=== PATIENT | female | born 1940 | race Caucasian/White ===

== ENCOUNTER → 2016-04-20 | Outpatient (CLI) | payer MEDICARE, BC ==
[2016-04-20 11:57] LABS: Basophils % (A) 0 %; CH 27.9; CHCM 30.7; Eosinophils # (A) 0.1 k/uL (0-0.7); Eosinophils % (A) 2 %; HDW 2.48; Hypochromasia Moderate; Luc # (Auto) 0.11; Luc % (Auto) 1; Lymphocytes # (A) 2.6 k/uL (1.0-4.8); Lymphocytes % (A) 27 %; MCH 28.4 pg (25.0-35.0); MCV 91.6 fL (80.0-100.0); Mean Platelet Volume 8.8; Monocytes # (A) 0.3 k/uL (0-1.0); Monocytes % (A) 3 %; Neutrophils # (A) 6.7 k/uL (1.3-7.7); Neutrophils % (A) 68 %; RBC 4.91 m/uL (3.80-5.40); RDW 12.9 % (11.5-15.5); WBC 9.9 k/uL (3.8-10.6); WBC (Perox) 10.43
[2016-04-20 12:12] LABS: ALT 30 U/L (9-52); AST 19 U/L (14-36); Alkaline Phosphatase 78 U/L (38-126); Anion Gap 11 mmol/L; Blood Urea Nitrogen 14 mg/dL (7-17); Calcium 9.3 mg/dL (8.4-10.2); Carbon Dioxide 26 mmol/L (22-30); Chloride 111 mmol/L (98-107); Glucose 125 mg/dL (74-99); Non-African American GFR(MDRD) >60 (>60 ml/min/1.73 sqM); Potassium 5.2 mmol/L (3.5-5.1); Sodium 148 mmol/L (137-145); Total Bilirubin 0.6 mg/dL (0.2-1.3); Total Protein 6.8 g/dL (6.3-8.2)
[2016-04-20 13:54] LABS: Appearance,Urine Clear (Clear); Bilirubin,Urine Negative (Negative); Glucose,Urine (UA) Negative (Negative); Ketones,Urine Negative (Negative); Leukocyte Esterase,Urine Moderate (Negative); Nitrite,Urine Negative (Negative); Particle Count 1329; Protein,Urine Negative (Negative); RBC,Urine 1 /hpf (0-5); Squamous Epithelial Cell,Urine <1 /hpf (0-4); UA Billing (MACRO vs. MICRO) MICRO; Urobilinogen,Urine <2.0 mg/dL (<2.0); WBC,Urine 9 /hpf (0-5)
== END | disposition home or self-care (01) ==
LOC: LABPAT 11:11
PROVIDERS: ATTEND Orthopaedic Surgery
DX: Z01.810 Encounter for preprocedural cardiovascular examination (principal); Z01.812 Encounter for preprocedural laboratory examination
CPT/HCPCS: 80053; 81001; 85025; 85610; 85730; 86850; 86900; 86901; 87070

== ENCOUNTER 2016-04-26 09:51 | Inpatient (IN) | payer MEDICARE, BC ==
[2016-04-13 17:37] VITALS: BMI 28.1
[~2016-04-26 09:51] MED LIST: ACETAMINOPHEN TAB 500 MG TAB PO ONE; DEXAMETHASONE SOD PHOSPHATE 10 MG/ML 1 ML VIAL IV ONE; HYDROmorphone 1 MG/ML 1 ML SYRINGE IVP PRN; LACTATED RINGERS 1,000 ML IV SCH; MELOXICAM 7.5 MG TAB PO ONE; ONDANSETRON 4 MG/2 ML VIAL IVP ONE; TRANEXAMIC ACID 1,000 MG in SODIUM CHLORIDE 0.9% 100 ML IVPB ONE
[2016-04-26] MEDS ORDERED: LIDOCAINE 1% 20 ML VIAL (10MG/ML) FOR IV START INTRADERMA ONE (11:06)
[2016-04-26] MEDS ORDERED: PROPOFOL 10 MG/ML 20 ML VIAL IV ONE (12:20)
[2016-04-26] MEDS ORDERED: HEPARIN SODIUM,PORCINE 10,000 UNIT/ML 1 ML VIAL ONE (12:20)
[2016-04-26] MEDS ORDERED: SODIUM CHLORIDE 0.9% IRRIG 1,000 ML BTL IRRIGATION ONE (12:20)
[2016-04-26] MEDS ORDERED: MIDAZOLAM 2 MG/2 ML VIAL ONE (12:20)
[2016-04-26] MEDS: ceFAZolin 2 GM in SODIUM CHLORIDE 0.9% 100 ML IVPB ONE ×2 (12:20→16:53)
[2016-04-26] MEDS ORDERED: SODIUM CHLORIDE 0.9% 100 ML BAG ONE ×2 (12:20)
[2016-04-26] MEDS ORDERED: fentaNYL (PF) 50 MCG/ML 2 ML AMP ONE (12:20)
[2016-04-26] MEDS ORDERED: TRANEXAMIC ACID 1,000 MG/10 ML VIAL ONE (12:20)
[2016-04-26] MEDS ORDERED: SODIUM CHLORIDE 0.9% IRRIG 3,000 ML BAG IRRIGATION ONE (12:20)
[2016-04-26] MEDS ORDERED: ceFAZolin 1,000 MG VIAL ONE ×2 (12:20)
[2016-04-26] MEDS ORDERED: ceFAZolin 3,000 MG in SODIUM CHLORIDE 0.9% IRRIGATIO 3,000 ML IRRIGATION ONE (12:58)
[2016-04-26] MEDS: ROPIVACAINE 246.25 MG, EPINEPHrine 0.5 MG, KETOROLAC 30 MG, cloNIDine HCL/PF 80 MCG, WA... MISCELLANE ONE ×10 (12:58→13:41)
--- NOTE | 2016-04-26 13:50 | P.OP ---
Date of Procedure: 04/26/16 Preoperative Diagnosis: Severe osteoarthritis of the right hip Postoperative Diagnosis: Severe osteoarthritis of the right hip Procedure(s) Performed: Right total hip arthroplasty with a direct anterior approach Implants: Johnson and nephew Polarstem size 5 standard with a collar Johnson & Nephew R3, 3 hole acetabular shell, 52 mm Johnson & Nephew reflection 6.5 mm cancellus screw, 20 mm 2 Johnson & Nephew R3, XLPE 20 acetabular liner Johnson & Nephew Oxinium femoral head 36 m, +0 All components were press-fit. The articulation is ceramic on polyethylene. Anesthesia: spinal Surgeon: Mark Haddad Arabic Translator #1: Xiomara Bartlett Estimated Blood Loss (ml): 150 (61 cc returned with cell saver) Pathology: other (Femoral head) Condition: stable Disposition: PACU Indications for Procedure: After failure of conservative treatment we discussed the surgical and nonsurgical treatment options at length. Patient wishes to proceed with a total hip arthroplasty with a direct anterior approach. Complications specific to this procedure were discussed at length, including but not limited to infection, leg length discrepancy, dislocation, and nerve injury. Patient is aware of all these complications and informed consent was obtained Operative Findings: The findings are consistent with severe osteoarthritis of the right hip Description of Procedure: Patient was seen and evaluated in the preoperative area, consent was reviewed, and the surgical site was marked with a skin marker. Patient was then brought to the operating room and given prophylactic antibiotics intravenously. 1 g of Tranexamic acid was also given. A spinal anesthetic was administered by the anesthesia department. The patient was then placed on the hand table with the bony prominences well-padded. The hip area was then prepped and draped in usual sterile fashion. A universal timeout was then performed, which confirmed the patient's name, surgical site, ALLERGIES, and procedure being performed. Next the incision site was located at 1 cm distal and 1 cm lateral to the anterior superior iliac spine. The skin and subcutaneous tissues were sharply incised. Incision was carefully dissected down to the fascia overlying the tensor fascia onur muscle. This fascia was then incised in line with the incision. Next, using blunt finger dissection, the tensor fascia onur muscle was dissected off its investing fascia. The muscle was then carefully retracted laterally with a cobra retractor over the lateral neck of the femur. Next, the circumflex vessels were identified and cauterized using the AquaMantis device. The anterior hip capsule was then exposed. The capsule was then opened and an inverted T fashion. Retention sutures were placed in the inferior arms of the capsule. Cobra retractors were then placed intracapsularly. The proximal femur was then visualized. The femoral neck was then osteotomized appropriate level above the lesser trochanter. Small amount of traction was placed with the hand table. A small wedge of bone was then removed from the remaining femoral head. Next, using a corkscrew femoral head was easily removed from the acetabulum. On gross visual inspection, the femoral head had complete loss of articular cartilage in multiple periarticular osteophytes. Attention was then turned to the acetabulum. the acetabulum was exposed and any remaining labrum was excised. Sequential reaming of the acetabulum was performed using fluoroscopic guidance. When the appropriate size was reached, a trial was then placed. The position and fit of the trial was checked with fluoroscopy. The trial was then removed. Then, using fluoroscopic guidance, the final implant was impacted at 20 of anteversion and 40 of abduction, and fully seated in the acetabulum. 2 screws were then placed in the acetabulum. Again fluoroscopy was used to check position of the screws. Next, the liner was then impacted, with a 20 elevated liner located in the anterior superior quadrant. Component locking was confirmed. Attention was then directed to the femur. With the aid of the Jessica table, the femur was externally rotated to approximately 130, extended, and abducted under the opposite leg. A side hook was then placed under the proximal femur, and the side hook elevator was used to elevate the proximal femur. Retractors were then placed. A capsular release was performed, as well as a release of the conjoined tendon, which afforded excellent visualization of the proximal femur. Next, a box osteotome was used to lateralize the proximal femur. A drill hand was then used to locate the femoral canal. Sequential broaching was then performed with appropriate size which afforded excellent fixation in the proximal femur. The calcar was then planed. A trial was then placed with appropriate head and neck, and the hip was gently reduced with the aid of the Jessica table. Fluoroscopy was then used to check position of the components, as well as to ensure equal leg lengths. The hip was then gently dislocated and the trials were then removed. Final implants were then impacted and the hip was again reduced. Final fluoroscopic x-rays confirmed that the components were in anatomic position, as well as equal leg lengths. The hip was also taken through range of motion, and found to be stable. The hip was then copiously irrigated with antibiotic solution with pulsatile lavage. The hip was then irrigated with Irrisept solution. The soft tissues were then injected with ropivacaine solution. A second dose of 1 g of Tranexamic acid was given. the fascia was then closed with 2-0 strata fix suture. The subcutaneous tissue was closed with 3-0 Vicryl. The subcuticular tissue was closed with 30 strata fix suture. The skin was then closed with Dermabond tape. The patient was then transferred to the recovery room in stable condition. The Asst. Xiomara Bartlett was required due to the complexity of surgery, and the need for skilled rn surgical pcu for positioning, draping, exposure, retraction, and closure of the wound.and closure of the wound.
[2016-04-26] MEDS ORDERED: LACTATED RINGERS 1,000 ML IV ONE (13:58)
--- NOTE | 2016-04-26 14:08 | FL ---
EXAMINATION TYPE: FL guidance operating room DATE OF EXAM: 04/26/2016 1:56 PM COMPARISON: None HISTORY: Right anterior hip replacement Fluoroscopy support supplied to the referring clinician. See dictated report from orthopedic surgery , 48 seconds fluoroscopy time supplied, 3 intraoperative C-arm images document the procedure.
--- NOTE | 2016-04-26 14:09 | XR ---
Limited right hip HISTORY: Hip replacement Limited images document the procedure
[2016-04-26] MEDS ORDERED: ONDANSETRON 4 MG/2 ML VIAL IVP PRN (14:15)
[2016-04-26] MEDS ORDERED: DIAZEPAM 5 MG TAB PO PRN ×2 (14:15)
[2016-04-26] MEDS ORDERED: MAGNESIUM HYDROXIDE 2,400 MG/10 ML CUP PO PRN (14:15)
[2016-04-26] MEDS ORDERED: NALOXONE 0.4 MG/ML 1 ML VIAL IV PRN (14:15)
--- NOTE | 2016-04-26 15:03 | XR ---
Limited right hip HISTORY: Status post right hip arthroplasty No comparisons Patient is status post right hip arthroplasty. There is anatomic alignment. Lucency in the soft tissu es consistent with postop change. IMPRESSION: Orthopedic follow-up
[2016-04-26 16:00] VITALS: RESP 16
[2016-04-26] MEDS ORDERED: PANTOPRAZOLE 40 MG TABLET PO PRN (16:56)
[2016-04-26] MEDS: SODIUM CHLORIDE 0.9% 1,000 ML IV SCH (16:58)
[2016-04-26] MEDS: ceFAZolin 2 GM in SODIUM CHLORIDE 0.9% 100 ML IVPB SCH ×2 (16:58→23:48)
[2016-04-26] MEDS: traMADol 50 MG TAB PO PRN ×2 (17:21→23:51)
[2016-04-26] MEDS: NICOTINE 14MG/24HR PATCH TRANSDERM SCH (17:23)
--- NOTE | 2016-04-26 17:44 | CONS ---
DATE OF CONSULTATION: 04/26/2016 REASON FOR CONSULTATION: Medical management requested by Dr. Haddad. CONSULTATION: This is a pleasant 75-year-old patient of Dr. Telles whose chronic stable medical conditions include hypertension, hyperlipidemia, GERD. Patient has undergone right total hip arthroplasty; feeling well; sitting up in a chair. No chest pain, shortness of breath, nausea or vomiting. REVIEW OF SYSTEMS: CONSTITUTIONAL: None. HEENT: None. RESPIRATORY: None. CARDIOVASCULAR: None. GASTROINTESTINAL: Heartburn. GENITOURINARY: None. MUSCULOSKELETAL: Pain in the joints. DERMATOLOGICAL: None. HEMATOLOGICAL: None. LYMPHATIC: None. PSYCHIATRY: None. NEUROLOGICAL: None. PAST MEDICAL HISTORY: 1. GERD. 2. Hyperlipidemia. 3. Hypertension. 4. Bilateral laser surgery. 5. Bilateral cataract surgery. 6. Back surgery. SOCIAL HISTORY: Smokes half a pack a day. . Occasional alcohol. FAMILY HISTORY: Alzheimer's dementia. ALLERGIES: 1. TYLENOL NO. 3. 2. MORPHINE causes nausea, vomiting. HOME MEDICATIONS: 1. Omeprazole 20 mg daily p.r.n. 2. Multivitamin 1 tablet p.o. daily. 3. Zestril 10 mg p.o. daily. 4. Motrin 800 mg p.o. q.8 p.r.n. 5. Aspirin 81 mg p.o. daily. 6. Tylenol 325 p.o. q.4 p.r.n. On examination, temperature 97.9, pulse 79, respiration 16, blood pressure 120/53, pulse ox 95% on room air. GENERAL APPEARANCE: Average build. Sitting up in a chair. Comfortable. EYES: Pupils equal. Conjunctivae normal. HEENT: External appearance of nose and ears normal. Oral cavity normal. NECK: JVD not raised. Mass not palpable. RESPIRATORY: Effort normal. LUNGS: Slightly decreased breath sounds. CARDIOVASCULAR: First and second sounds normal. No edema. ABDOMEN: Soft, nontender. Liver and spleen not palpable. LYMPHATIC: No lymph node palpable in neck or axillae. PSYCHIATRY: Alert and oriented x3. Mood and affect normal. NEUROLOGICAL: Pupils equal. Cranial nerves grossly intact. INVESTIGATIONS: No blood work. ASSESSMENT: 1. Right total hip arthroplasty. 2. Gastroesophageal reflux disease. 3. Hyperlipidemia. 4. Essential hypertension. 5. Chronic nicotine dependence. PLAN: Home medications are resumed. Patient is on DVT prophylaxis. She is on aspirin 325 p.o. b.i.d. Patient counseled against smoking; will be given a nicotine patch. Thank you, Dr. Haddad.
[2016-04-26] MEDS: ACETAMINOPHEN TAB 325 MG TAB PO PRN (19:20)
[2016-04-26] MEDS: ASPIRIN 325 MG TAB PO SCH (20:59)
[2016-04-26] MEDS ORDERED: SENNOSIDES-DOCUSATE SODIUM 1 EACH TAB PO SCH (21:00)
[2016-04-27] MEDS: ACETAMINOPHEN TAB 325 MG TAB PO PRN (04:03)
[2016-04-27] MEDS: SODIUM CHLORIDE 0.9% 1,000 ML IV SCH (04:11)
[2016-04-27 07:10] LABS: Basophils # (A) 0.1 k/uL (0-0.2); Basophils % (A) 1 %; CH 28.1; CHCM 30.8; Eosinophils # (A) 0.1 k/uL (0-0.7); Eosinophils % (A) 1 %; HDW 2.51; Hypochromasia Slight; Luc % (Auto) 1; Lymphocytes % (A) 18 %; MCH 28.1 pg (25.0-35.0); MCHC 30.6 g/dL (31.0-37.0); MCV 91.7 fL (80.0-100.0); Mean Platelet Volume 9.2; Monocytes # (A) 0.7 k/uL (0-1.0); Monocytes % (A) 6 %; Neutrophils # (A) 8.6 k/uL (1.3-7.7); Neutrophils % (A) 74 %; RBC 3.81 m/uL (3.80-5.40); RDW 12.7 % (11.5-15.5); WBC 11.6 k/uL (3.8-10.6); WBC (Perox) 12.03
[2016-04-27 07:36] LABS: HGB 10.7 gm/dL (11.4-16.0)
[2016-04-27 07:48] VITALS: BP 112/53; PULSE 74; TEMP 98.1
[2016-04-27] MEDS ORDERED: HYDROcodone/APAP 5-325MG 1 EACH TAB PO PRN ×2 (08:11)
[2016-04-27] MEDS: ASPIRIN 325 MG TAB PO SCH (08:13)
--- NOTE | 2016-04-27 08:14 | P.DS ---
Providers Date of admission: 04/26/16 09:51 Expected date of discharge: 04/27/16 Attending physician: Mark Haddad Consults: 04/26/16 14:15 Consult Physician Routine Consulting Provider: Jair Alonso Consult Reason/Comments: medical management Do you want consulting provider notified?: Yes Primary care physician: Aldair Telles - Discharge Diagnosis(es) (1) Status post right hip replacement Current Visit: Yes Status: Acute (2) Primary osteoarthritis of right hip Current Visit: Yes Status: Acute Hospital Course: This is a pleasant 75-year-old female who was last seen in our office with complaints of right hip pain. Patient has known history of degenerative arthritis of the right hip and presented to discuss options. After discussion consideration the patient elected to proceed with a right total hip arthroplasty. Patient was seen preoperatively medically cleared for surgery by her primary care physician. Patient was admitted to [facility] and underwent right total hip arthroplasty. The procedure was performed without complications or sequelae. The patient has done well postoperatively. She is seen and evaluated at bedside with Dr. Mark Haddad. Pain has been are reasonably controlled and is progressing with physical therapy. The patient has no new complaints today. Patient denies shortness of breath, nausea or abdominal pain. The patient appears comfortable and in no acute distress. Dressing is clean dry and intact. Incision is fine with no erythema or active drainage. Calf is soft and nontender. The patient has good foot and ankle motion without difficulty. Lower extremities are neurovascularly intact. The patient is orthopedically stable for discharge if she is cleared medically this afternoon. Pertinent Studies: Laboratory Tests 04/27/16 06:48 WBC 11.6 H RBC 3.81 Hgb 10.7 L D Hct 35.0 MCV 91.7 MCH 28.1 Patient Condition at Discharge: Good Plan - Discharge Summary New Discharge Prescriptions: Aspirin 325 mg PO BID #60 tab Hydrocodone/Acetaminophen [[place] 5-325] 1 - 2 each PO Q6HR PRN #90 tab PRN Reason: Pain Sennosides-Docusate Sodium [Senokot-S] 2 tab PO DAILY #60 tablet Discharge Medication List Aspirin 81 mg PO DAILY 07/23/15 [History] Ibuprofen [Motrin] 800 mg PO Q8HR PRN 07/23/15 [History] Lisinopril [Zestril] 10 mg PO QAM 07/23/15 [History] Omeprazole 20 mg PO DAILY PRN 07/23/15 [History] Acetaminophen [Tylenol] 325 mg PO Q4H PRN 04/13/16 [History] Multivitamins, Thera [Multivitamin] 1 tab PO DAILY 04/13/16 [History] Aspirin 325 mg PO BID #60 tab 04/27/16 [Rx] Hydrocodone/Acetaminophen [[place] 5-325] 1 - 2 each PO Q6HR PRN #90 tab 04/27/16 [Rx] Sennosides-Docusate Sodium [Senokot-S] 2 tab PO DAILY #60 tablet 04/27/16 [Rx] Follow up Appointment(s)/Referral(s): Mark Haddad DO [Doctor of Osteopathic Medicine] - 2 Weeks Activity/Diet/Wound Care/Special Instructions: Weightbearing as tolerated with walker Follow hip precautions and use abductor pillow as instructed Daily dressing changes Keep incision clean and dry [facility] with questions or concerns [phone] Discharge Disposition: HOME WITH HOME HEALTH SERVICES
[2016-04-27] MEDS: NICOTINE 14MG/24HR PATCH TRANSDERM SCH (08:48)
[2016-04-27] MEDS ORDERED: LISINOPRIL 10 MG TAB PO SCH (09:00)
[2016-04-27] MEDS ORDERED: MELOXICAM 7.5 MG TAB PO SCH (09:00)
--- NOTE | 2016-04-27 21:57 | PN ---
DATE OF SERVICE: 04/27/2016. PRESENTING COMPLAINT: Right hip arthroplasty. INTERVAL HISTORY: Patient is status post right total hip arthroplasty. I saw her this morning, doing much better, tolerating her meals. No chest pain or short of breath. Review of systems done for constitutional, cardiovascular, GI, pulmonary; relevant findings as above. Current medications are reviewed. On examination, temperature 98.1, pulse 74, respirations 16, blood pressure 102/73, pulse ox 95% on room air. GENERAL APPEARANCE: Sitting up, not in distress. EYES: Pupils equal. Conjunctivae normal. NECK: JVD not raised. Mass not palpable. RESPIRATORY: Effort normal. LUNGS: Decreased breath sounds. CARDIOVASCULAR: First and second sounds normal. No edema. ABDOMEN: Soft, nontender. Liver and spleen not palpable. PSYCHIATRY: Alert and oriented x3. Mood and affect normal. INVESTIGATIONS: White count 11.6, hemoglobin 10.7. ASSESSMENT: 1. Right total hip arthroplasty. 2. Gastroesophageal reflux disease. 3. Hyperlipidemia. 4. Essential hypertension. 5. Chronic nicotine dependence. PLAN: Care was discussed with the patient, doing well. Thank you, Dr. Haddad.
== END 2016-04-27 13:01 | disposition home health service (06) | DRG 470 ==
LOC: 2ORMAIN 09:51 → 3SUR 15:53
PROVIDERS: ADMIT Orthopaedic Surgery; ATTEND Orthopaedic Surgery
PROC: 0SR904A Replacement of Right Hip Joint with Ceramic on Polyethylene Synthetic Substitute, Uncemented, Open Approach (ICD-10-PCS; principal; 2016-04-26 12:05)
DX: M16.11 Unilateral primary osteoarthritis, right hip (principal); I10 Essential (primary) hypertension; E78.5 Hyperlipidemia, unspecified; F17.200 Nicotine dependence, unspecified, uncomplicated; K21.9 Gastro-esophageal reflux disease without esophagitis; Z79.82 Long term (current) use of aspirin; Z88.5 Allergy status to narcotic agent; Z79.1 Long term (current) use of non-steroidal anti-inflammatories (NSAID); Z79.899 Other long term (current) drug therapy
CPT/HCPCS: 73501; 85025; 86850; 86900; 86901; 88300

== ENCOUNTER → 2016-10-03 | Outpatient (CLI) | payer MEDICARE, BC ==
[~2016-10-03] MED LIST changes: -ACETAMINOPHEN TAB 500 MG TAB PO ONE; +DENOSUMAB 60 MG/ML 1 ML SYRINGE SQ ONE; -DEXAMETHASONE SOD PHOSPHATE 10 MG/ML 1 ML VIAL IV ONE; -HYDROmorphone 1 MG/ML 1 ML SYRINGE IVP PRN; -LACTATED RINGERS 1,000 ML IV SCH; -MELOXICAM 7.5 MG TAB PO ONE; -ONDANSETRON 4 MG/2 ML VIAL IVP ONE; -TRANEXAMIC ACID 1,000 MG in SODIUM CHLORIDE 0.9% 100 ML IVPB ONE
[2016-10-03 13:26] VITALS: RESP 16; TEMP 97.8
[2016-10-03 13:29] VITALS: BP 144/67; PULSE 86
== END | disposition home or self-care (01) ==
LOC: PROCWHC3 13:01
PROVIDERS: ATTEND Family Medicine
DX: M81.0 Age-related osteoporosis without current pathological fracture (principal)
CPT/HCPCS: 96372; J0897

== ENCOUNTER → 2018-01-23 | Outpatient (CLI) | payer MEDICARE, BC ==
[2018-01-23 14:21] VITALS: BP 138/63; PULSE 91; RESP 18; TEMP 97.8
== END ==
LOC: PROCWHC3 14:04
PROVIDERS: ATTEND Family Medicine
DX: M81.0 Age-related osteoporosis without current pathological fracture (principal)
CPT/HCPCS: 96372; J0897

== ENCOUNTER → 2018-03-30 | Outpatient (CLI) | payer MEDICARE, BC ==
--- NOTE | 2018-04-04 09:27 | P.ARTDOP ---
Arterial Doppler LOWER EXTREMITY ARTERIAL DOPPLER: DATE OF SERVICE: 03/30/2018 Reason for study: Bilateral leg pain increasing with walking. Doppler waveforms: Multiphasic at the right femoral and popliteal. Atypical throughout on the left and below the popliteal on the right.. Pulse volume recording: Some blunting proximally but progressive blunting as 1 progresses more distally. Pressure gradients: Significant gradient above the knee bilaterally. Ankle-brachial indices: 0.62 on the right and 0.46 on the left. Toe pressures: 34 on the right, 20 on the left Impression: At least moderate right femoral popliteal disease with possible iliac component on the right. Moderate to severe left femoral popliteal disease with suspected iliac component. Recommend vascular surgical assessment..
== END | disposition home or self-care (01) ==
LOC: RADUSWWP 13:41
PROVIDERS: ATTEND Family Medicine
DX: I73.9 Peripheral vascular disease, unspecified (principal)
CPT/HCPCS: 93923

== ENCOUNTER → 2018-04-26 | Outpatient (CLI) | payer MEDICARE, BC ==
--- NOTE | 2018-04-26 09:57 | US ---
EXAMINATION TYPE: US carotid duplex BILAT DATE OF EXAM: 04/26/2018 COMPARISON: NONE CLINICAL HISTORY: R09.89 Carotid Bruit. EXAM MEASUREMENTS: RIGHT: Peak Systolic Velocity (PSV) cm/sec ----- Right CCA: 63.2 ----- Right ICA: 139. ----- Right ECA: 115 ICA/CCA ratio: 2.20 RIGHT: End Diastole cm/sec ----- Right CCA: 13.4 ----- Right ICA: 34.7 ----- Right ECA: 0.0 LEFT: Peak Systolic Velocity (PSV) cm/sec ----- Left CCA: 79.5 ----- Left ICA: 105.0 ----- Left ECA: 103 ICA/CCA ratio: 1.32 LEFT: End Diastole cm/sec ----- Left CCA: 14.9 ----- Left ICA: 27.9 ----- Left ECA: 15.6 VERTEBRALS (direction of flow): Right Vertebral: Antegrade Left Vertebral: Antegrade Rhythm: Normal Grayscale images show mild to moderate eccentric hyperechoic plaque at right carotid bulb and similar mild to moderate eccentric plaque at left carotid bulb. Slight increased peak systolic velocity in t he right internal carotid artery. There is abnormal ICA over CCA ratio. End-diastolic velocity is wit hin normal limits. IMPRESSION: Mild to moderate atherotic change bilaterally, cannot exclude significant stenosis 50-69 % on the right side though suspected is under but approaching 50%, advise CTA or MRA of the neck to f urther evaluate and characterize. Criteria for Assigning % of Stenosis / Diameter reduction (Estimation based on the indirect measurements of the internal carotid artery velocities (ICA PSV). 1. Normal (no stenosis)=ICA PSV < 125 cm/s: ratio < 2.0: ICA EDV<40 cm/s. 2. Less than 50% stenosis=ICA PSV < 125 cm/s: ratio < 2.0: ICA EDV<40 cm/s. 3. 50 to 69% stenosis=ICA PSV of 125 to 230 cm/s: ration 2.0 ? 4.0: ICA EDV 40-100 cm/s. 4. Greater than 70% stenosis to near occlusion= ICA PSV > 230 cm/s: ratio > 4.0: ICA EDV > 100 cm/s. 5. Near occlusion= ICA PSV velocities may be low or undetectable: variable ratio and ICA EDV. 6. Total occlusion=unable to detect flow.
== END | disposition home or self-care (01) ==
LOC: RADUSWWP 08:51
PROVIDERS: ATTEND Physician Assistant
DX: I65.23 Occlusion and stenosis of bilateral carotid arteries (principal)
CPT/HCPCS: 93880

== ENCOUNTER → 2018-05-10 | Outpatient (CLI) | payer MEDICARE, BC ==
--- NOTE | 2018-05-10 15:19 | CT ---
EXAMINATION TYPE: CT angio neck DATE OF EXAM: 05/10/2018 HISTORY: Abnormal US COMPARISON: Ultrasound 04/26/2018 CT DLP: 249 mGycm. Automated Exposure Control for Dose Reduction was Utilized. TECHNIQUE: CTA scan of the neck is performed with IV Contrast, patient injected with 65 mL of Isovue 370, axial images are obtained, coronal and sagittal reformatted images are reviewed. Three-D recons tructed images are created on an independent workstation and reviewed. FINDINGS: Subcentimeter right thyroid nodule noted. Origin of the great vessels are patent. A configurati on noted. Atherosclerotic change of the aortic arch. Right vertebral artery is dominant. There is atherosclerotic plaque at the level the carotid bulb and bifurcation bilaterally with approx imate 50-60% stenosis on the left within the proximal ICA and 40-50% stenosis involving the proximal right ICA. Hypertrophic and degenerative change of the vertebral column. Multilevel facet arthropathy. There is a subpleural nodule measuring approximately 2 mm right upper lobe laterally. Shotty adenopathy in the soft tissues of the neck. IMPRESSION: 1. Mild to moderate atherosclerotic plaque with approximately 50-60% stenosis involving the proximal left ICA. 2. Mild atherosclerotic plaque on the right with approximately 40-50% stenosis of the proximal ICA. 3. 2 mm upper lobe pulmonary nodule too small to characterize could be followed with a six-month foll ow-up CT chest.
== END | disposition home or self-care (01) ==
LOC: RADCTMAIN 13:23
PROVIDERS: ATTEND Physician Assistant
DX: I65.23 Occlusion and stenosis of bilateral carotid arteries (principal)
CPT/HCPCS: 82565; 84520; 70498; 36415; Q9967

== ENCOUNTER → 2018-08-15 | Outpatient (CLI) | payer MEDICARE, BC ==
[2018-08-15 10:53] VITALS: BP 166/67; PULSE 97; RESP 16; TEMP 97.2
== END ==
LOC: PROCWHC3 10:40
PROVIDERS: ATTEND Family Medicine
DX: M81.0 Age-related osteoporosis without current pathological fracture (principal)
CPT/HCPCS: 96372; J0897

== ENCOUNTER → 2018-08-15 | Outpatient (CLI) | payer MEDICARE, BC ==
[2018-08-15 11:00] LABS: HCT 40.2 % (34.0-46.0); HGB 12.6 gm/dL (11.4-16.0); Hypochromasia Slight; MCH 28.3 pg (25.0-35.0); MCHC 31.4 g/dL (31.0-37.0); MCV 90.1 fL (80.0-100.0); Mean Platelet Volume 8.6; Platelet Count 238 k/uL (150-450); RBC 4.46 m/uL (3.80-5.40); RDW 13.3 % (11.5-15.5); WBC 9.3 k/uL (3.8-10.6)
[2018-08-15 11:11] LABS: Anion Gap 9 mmol/L; Blood Urea Nitrogen 13 mg/dL (7-17); Carbon Dioxide 26 mmol/L (22-30); Chloride 108 mmol/L (98-107); Potassium 4.3 mmol/L (3.5-5.1); Sodium 143 mmol/L (137-145)
== END | disposition home or self-care (01) ==
LOC: LABPAT 09:32
PROVIDERS: ATTEND Internal Medicine Interventional Cardiology
DX: Z01.812 Encounter for preprocedural laboratory examination (principal); I73.9 Peripheral vascular disease, unspecified
CPT/HCPCS: 36415; 80051; 82565; 84520; 85027

== ENCOUNTER 2018-08-29 07:15 | Day surgery (SDC) | payer MEDICARE, BC ==
[~2018-08-29 07:15] MED LIST changes: +ALPRAZolam 0.25 MG TAB PO PRN; +ASPIRIN 325 MG TAB PO STA; -DENOSUMAB 60 MG/ML 1 ML SYRINGE SQ ONE; +SODIUM CHLORIDE 0.9% 1,000 ML in EMPTY BAG 1 BAG IV ONE
[2018-08-29] MEDS ORDERED: ASPIRIN 81 MG ONE (07:45)
[2018-08-29] MEDS ORDERED: SODIUM CHLORIDE 0.9% 1,000 ML IV ONE (08:21)
[2018-08-29 08:30] LABS: Glucose,Whole Blood 123 mg/dL (75-99)
[2018-08-29] MEDS: MIDAZOLAM (PF) 2 MG/2 ML VIAL IV ONE ×2 (08:51→09:06)
[2018-08-29] MEDS ORDERED: LIDOCAINE 1% INJ 10MG/ML (20 ML MDV) SQ ONE (09:01)
[2018-08-29] MEDS ORDERED: HEPARIN SODIUM 1,000 UN/ML (10ML VL) IV ONE (09:04)
[2018-08-29] MEDS ORDERED: niCARdipine Syringe (1,000 mcg/10 mL) INTRAARTER ONE (09:53)
[2018-08-29] MEDS ORDERED: NITROGLYCERIN 1000MCG/10ML SYRINGE INTRAARTER ONE (09:53)
[2018-08-29] MEDS ORDERED: CLOPIDOGREL 75 MG TAB PO ONE (09:55)
[2018-08-29] MEDS ORDERED: IOPAMIDOL-250 100ML BTL INTRAARTER ONE (09:59)
[2018-08-29] MEDS ORDERED: ACETAMINOPHEN TAB 325 MG TAB PO PRN (10:16)
[2018-08-29] MEDS ORDERED: SODIUM CHLORIDE 0.9% 1,000 ML IV SCH (10:30)
[2018-08-29] MEDS ORDERED: fentaNYL (PF) 50 MCG/ML 2 ML AMP IVP ONE (11:20)
--- NOTE | 2018-08-29 11:40 | LTR ---
August 29, 2018 Re: Cinthya Dunbar Dear Dr. Telles: Ms. 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 I want to thank you for allowing me to participate in her care and please do not hesitate to call if you have any questions or concerns. Sincerely, MD NICOLE Rasmussen / ALINE: [id number] /
[2018-08-29] MEDS ORDERED: ONDANSETRON 4 MG/2 ML VIAL IVP PRN (11:55)
[2018-08-29] MEDS ORDERED: hydrALAZINE HCL 20 MG/ML 1 ML VIAL IVP PRN (11:55)
--- NOTE | 2018-08-29 11:55 | AN ---
ANGIOGRAPHY REPORT DATE OF SERVICE: August 29, 2018 PERFORMING PHYSICIAN: Vinod Deras MD, non [employer] job [employer]. PROCEDURE PERFORMED: 1. Nonselective right [id number] angiogram. 2. Selective right SFA angiogram. 3. 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 4. Atherectomy of the right SFA using the TurboHawk atherectomy device with extraction of significant amount of plaque. 5. Successful balloon angioplasty of the right SFA using 5.0 x 150 mm InPact drug coated balloon with an excellent angiographic results and reduction of stenosis from 100% to 0%. INDICATION: This is a very pleasant 77-year-old female patient who sees Dr. Telles as an outpatient with a past medical history significant for hypertension and dyslipidemia who was experiencing bilateral lower extremity intermittent claudication interfering with her daily activities. On examination, she did not have any pedal pulses. She underwent a peripheral angiogram at [facility] and that revealed occluded bilateral SFA. She was brought today to undergo an intervention on the right SFA. APPROACH: Right common femoral artery. COMPLICATION: None. LEVEL OF SEDATION: Moderate with sedation length of 63 minutes. PROCEDURE DESCRIPTION: After obtaining an informed consent, the patient was brought to the cardiac agriculture laboratory technician. The left common femoral artery was cannulated using micropuncture technique, the micropuncture wire passed easily then I placed a 6-Belizean sheath in the left common femoral artery. At that point, anticoagulation was initiated using heparin and the patient was given 6000 units of heparin IV. Subsequently, I did select the right SFA using 0.035 [place] Advantage wire with the support of 5-Belizean Rim catheter. The [place] Advantage wire was advanced to the proximal right SFA. After that, I did exchange my 11 cm 6-Belizean sheath into 70 cm 6- Belizean Raabe sheath using the 0.035 [place] Advantage wire. The tip of the sheath was positioned in the right common femoral artery. After that I was able to cross the chronic total occlusion of the right SFA. I did advance and 0.018 CXI catheter to the right popliteal and I injected contrast to prove that I was in the true lumen. After that I did place an 0.014 wire in the right SFA to the right popliteal. I did after that an atherectomy of the right SFA using the TurboHawk atherectomy device with extraction of significant amount of plaque. After that, I did balloon angioplasty initially using 4.0 x 250 mm balloon and then 5.0 x 150 mm InPact drug coated balloon where the balloon was positioned under fluoroscopy guidance and inflated under 6 atmospheres for 3 minutes with the following angiogram showing good angiographic results. At that point, I decided to stop. The below-the- knee angiogram showed 3-vessel runoff. I was able to feel pulse in her dorsalis pedis on the right side. Subsequently I did exchange the 70 cm sheath into a 6-Belizean sheath before I did selective left common femoral artery angiogram. The procedure was completed without any complication. POSTPROCEDURE MANAGEMENT: 1. Dual antiplatelet therapy. 2. Risk factor modifications. 3. SENIOR ADVOCATE of the left SFA to be performed in the next few weeks. MMODL / IJN: [id number] /
[2018-08-29 12:24] VITALS: BMI 31.4
[2018-08-29 12:25] LABS: Glucose,Whole Blood 108 mg/dL (75-99)
[2018-08-29] MEDS: IBUPROFEN 600 MG TAB PO PRN (16:03)
[2018-08-29 17:00] LABS: Glucose,Whole Blood 127 mg/dL (75-99)
[2018-08-29 20:26] LABS: Glucose,Whole Blood 126 mg/dL (75-99)
[2018-08-29] MEDS ORDERED: NON-FORMULARY DRUG (Cinnamon Bark [Cinnamon] 500 MG) PO SCH (21:00)
[2018-08-30] MEDS: IBUPROFEN 600 MG TAB PO PRN (03:22)
[2018-08-30 06:00] LABS: Glucose,Whole Blood 118 mg/dL (75-99)
[2018-08-30 07:46] VITALS: BP 158/69; PULSE 75; RESP 16; TEMP 98.1
[2018-08-30 08:31] LABS: Anion Gap 5 mmol/L; Blood Urea Nitrogen 14 mg/dL (7-17); Calcium 8.8 mg/dL (8.4-10.2); Carbon Dioxide 26 mmol/L (22-30); Chloride 110 mmol/L (98-107); Glucose 111 mg/dL (74-99); Potassium 4.5 mmol/L (3.5-5.1); Sodium 141 mmol/L (137-145)
[2018-08-30 08:57] LABS: Basophils % (A) 0 %; Eosinophils # (A) 0.3 k/uL (0-0.7); Eosinophils % (A) 3 %; HCT 35.7 % (34.0-46.0); HGB 11.5 gm/dL (11.4-16.0); Hypochromasia Slight; Lymphocytes % (A) 23 %; MCH 28.7 pg (25.0-35.0); MCHC 32.3 g/dL (31.0-37.0); Mean Platelet Volume 8.9; Monocytes # (A) 0.4 k/uL (0-1.0); Monocytes % (A) 5 %; Neutrophils # (A) 5.7 k/uL (1.3-7.7); Neutrophils % (A) 67 %; Platelet Count 197 k/uL (150-450); RBC 4.02 m/uL (3.80-5.40); RDW 13.3 % (11.5-15.5); WBC 8.5 k/uL (3.8-10.6)
[2018-08-30] MEDS ORDERED: CLOPIDOGREL 75 MG TAB PO SCH (09:00)
[2018-08-30] MEDS ORDERED: LISINOPRIL 10 MG TAB PO SCH (09:00)
[2018-08-30] MEDS ORDERED: ASPIRIN 81 MG PO SCH (09:00)
[2018-08-30] MEDS ORDERED: MULTIVITAMINS, THERA 1 EACH TAB PO SCH (09:00)
[2018-08-30] MEDS ORDERED: ATORVASTATIN 10 MG TAB PO SCH (09:00)
--- NOTE | 2018-08-30 09:00 | IR ---
Fluoroscopy HISTORY: Pain 19.7 minutes fluoroscopy time supplied to the referring clinician. 290 intraoperative C-arm images d ocument the procedure. See dictated report from cardiology.
--- NOTE | 2018-08-30 16:16 | DS ---
DISCHARGE SUMMARY DATE OF ADMISSION: 08/29/2018 DATE OF DISCHARGE: 08/30/2018 BRIEF HISTORY: This is a 77-year-old with good angiographic results and without any The patient would like to be discharged home in the office. MMODL / IJN: [id number] /
== END 2018-08-30 09:18 | disposition home or self-care (01) ==
LOC: CATHCVL 07:15 → 3SCARD 11:07 → CATHCVL 08-30 09:18
PROVIDERS: ATTEND Internal Medicine Interventional Cardiology
DX: E11.51 Type 2 diabetes mellitus with diabetic peripheral angiopathy without gangrene (principal); I70.213 Atherosclerosis of native arteries of extremities with intermittent claudication, bilateral legs; I70.92 Chronic total occlusion of artery of the extremities; I10 Essential (primary) hypertension; F17.200 Nicotine dependence, unspecified, uncomplicated; E78.5 Hyperlipidemia, unspecified; Z79.84 Long term (current) use of oral hypoglycemic drugs; Z79.82 Long term (current) use of aspirin; Z79.899 Other long term (current) drug therapy; Z88.5 Allergy status to narcotic agent
CPT/HCPCS: 37225; 80048; 85025; C1894 ×2; C1769 ×6; C1725; C1714; C2623; C1760; J0360; J2405; J2001; J1644; Q9966; J2250

== ENCOUNTER 2018-09-05 06:56 | Day surgery (SDC) | payer MEDICARE, BC ==
[2018-08-24 14:23] VITALS: BMI 28.9
[2018-09-05] MEDS ORDERED: SODIUM CHLORIDE 0.9% 1,000 ML IV ONE (07:30)
[2018-09-05 07:38] LABS: Glucose,Whole Blood 112 mg/dL (75-99)
[2018-09-05] MEDS: MIDAZOLAM (PF) 2 MG/2 ML VIAL IVP ONE ×4 (09:03→09:45)
[2018-09-05] MEDS ORDERED: LIDOCAINE 1% INJ 10MG/ML (20 ML MDV) SQ ONE (09:25)
[2018-09-05] MEDS ORDERED: HEPARIN SODIUM 1,000 UN/ML (10ML VL) IV ONE (09:36)
[2018-09-05] MEDS ORDERED: fentaNYL (PF) 50 MCG/ML 2 ML AMP IVP ONE (10:06)
[2018-09-05] MEDS ORDERED: MIDAZOLAM (PF) 2 MG/2 ML VIAL IVP ONE (10:14)
[2018-09-05] MEDS: NITROGLYCERIN 1000MCG/10ML SYRINGE INTRAARTER ONE ×2 (10:40→10:54)
[2018-09-05] MEDS ORDERED: niCARdipine Syringe (1,000 mcg/10 mL) INTRAARTER ONE (10:53)
[2018-09-05] MEDS ORDERED: hydrALAZINE HCL 20 MG/ML 1 ML VIAL IVP ONE (11:26)
[2018-09-05] MEDS ORDERED: ACETAMINOPHEN TAB 325 MG TAB PO PRN (11:37)
[2018-09-05] MEDS ORDERED: IBUPROFEN 600 MG TAB PO PRN (11:37)
[2018-09-05] MEDS ORDERED: ENALAPRILAT 1.25 MG/ML 1 ML VIAL IVP STA (11:37)
[2018-09-05] MEDS ORDERED: SODIUM CHLORIDE 0.9% 1,000 ML IV SCH (11:45)
[2018-09-05] MEDS ORDERED: HYDROmorphone 0.5 MG/0.5 ML SYRINGE IVP PRN (11:51)
[2018-09-05] MEDS ORDERED: HYDROmorphone 1 MG/ML 1 ML SYRINGE ONE (11:53)
--- NOTE | 2018-09-05 12:10 | AN ---
ANGIOGRAPHY REPORT DATE OF SERVICE: 09/05/2018 PERFORMING PHYSICIAN: Vinod Deras MD, Upper Extremity Surgeon. PROCEDURE PERFORMED: 1. Non-selective left rmxtp-qti-tvlw angiogram. 2. Selective left SFA angiogram. 3. Successful crossing chronic total occlusion of the left SFA. 4. Intravascular ultrasound IVUS of the left SFA. 5. An atherectomy of the left SFA using the Turbo Hawk device with extraction of significant amount of plaque. 6. Balloon angioplasty of the left SFA. 7. Successful stenting of the left SFA using two Zilver PTX drug-coated stents with an excellent angiographic result. INDICATION: This is a 77-year-old female patient who was experiencing severe bilateral lower extremity intermittent claudication and underwent a peripheral angiogram a few weeks ago and that revealed occluded bilateral SFA. She underwent SUMMER ASSOCIATE of the right SFA and was brought today to undergo a SUMMER ASSOCIATE of the left SFA. APPROACH: Right common femoral artery. COMPLICATION: None. LEVEL OF SEDATION: Moderate with sedation length of 106 minutes. PROCEDURE DESCRIPTION: After obtaining an informed consent, the patient was brought to the cardiac prosthetic lab technician. The right common femoral artery was cannulated using micropuncture technique, the micropuncture wire passed easily, then I placed a 6-Emirati 11 cm sheath in the right common femoral artery. At that point, anticoagulation was initiated using heparin. The patient was given 6000 units of heparin IV. After that, I did select the left profunda using 0.035 Elk Advantage wire with the backup support of a 5-Emirati RIM catheter. Subsequently, I did exchange my 11 cm 6- Emirati into 55 cm 6-Emirati Raabe sheath using the 0.035 Elk Advantage wire. The tip of the sheath was positioned in the left common femoral artery. Subsequently, the sheath was flushed and stabilized. After that, I did selective left dpxqr-mzr-[id number] angiogram which revealed 3-vessel runoff below the knee as well as selective left SFA angiogram. After that, I did cross the chronic total occlusion of the left SFA using 0.018 gold tip glidewire with the backup support of 0.018 CXI catheter. I did after that inject contrast in the left popliteal through the CXI catheter to prove that I was in the true lumen. After that, I placed 0.014 wire, which was hydro ST wire. I did intravascular ultrasound IVUS of the left SFA. After that, I did atherectomy of the left SFA using the Turbo Hawk device with extraction of significant amount of plaque. Then I did balloon angioplasty using 4-0 mm x 200 mm balloon. The following angiogram showed multiple area of dissection and at that point, I decided to go ahead and stent the left SFA. Distally, I placed a 6 x 140 mm stent and in the midportion of the left SFA, I placed a 7 x 140 mm stent. I ballooned both stent using 6 mm x 200 mm balloon. The following angiogram showed excellent angiographic results for the distal and mid left SFA. In the very proximal left SFA, there was a tight area, appeared to be in the range of 70%, which I did balloon angioplasty on it using a 5 mm AngioSculpt balloon, before I did balloon angioplasty using DCP balloon which was 5 x 40 as well. The balloon was inflated under 12 atmospheres for 3 minutes distally and the following angiogram showed excellent angiographic results. The procedure was completed without any complication. At that point, I did exchange my long sheath into short sheath using a 0.035 Elk Advantage wire, then I did selective right common femoral artery angiogram. The procedure was completed without any complication. POSTPROCEDURE MANAGEMENT: 1. Dual anti-platelet therapy. 2. Risk factor modifications. 3. Follow up with the patient. MMODL / IJN: [id number] /
--- NOTE | 2018-09-05 12:15 | LTR ---
September 05, 2018 Re: Cinthya Dunbar Dear Dr. Telles: Ms. Cinthya Cesar Manjinder underwent last week successful balloon angioplasty of the right femoral artery and today successful balloon angioplasty of the left femoral artery. Both went with good angiographic results and without any complication. I want to thank you for allowing me to participate in her care and please do not hesitate with any questions or concerns. Sincerely, MD NICOLE Rasmussen / DANISHAN: [id number] /
[2018-09-05] MEDS ORDERED: ONDANSETRON 4 MG/2 ML VIAL ONE (12:20)
[2018-09-05 15:13] LABS: Glucose,Whole Blood 124 mg/dL (75-99)
--- NOTE | 2018-09-05 16:58 | IR ---
EXAMINATION TYPE: IR stent intravas non coronary DATE OF EXAM: 09/05/2018 COMPARISON: NONE HISTORY: Fluoroscopy time. Fluoroscopy was provided to the referring clinician.
[2018-09-05 17:39] LABS: Glucose,Whole Blood 163 mg/dL (75-99)
[2018-09-05] MEDS: IBUPROFEN 600 MG TAB PO PRN (20:11)
[2018-09-05 20:47] LABS: Glucose,Whole Blood 147 mg/dL (75-99)
[2018-09-05] MEDS ORDERED: NON-FORMULARY DRUG (Cinnamon Bark [Cinnamon] 500 MG) PO SCH (21:00)
[2018-09-05 21:38] VITALS: RESP 18
[2018-09-06] MEDS: IBUPROFEN 600 MG TAB PO PRN (05:34)
[2018-09-06 06:27] LABS: Glucose,Whole Blood 121 mg/dL (75-99)
[2018-09-06 07:19] LABS: African American GFR (CKD) >90 (>60 ml/min/1.73 sqM)
[2018-09-06 08:31] VITALS: BP 171/68; PULSE 85; TEMP 98.2
[2018-09-06] MEDS ORDERED: ASPIRIN 81 MG PO SCH (09:00)
[2018-09-06] MEDS ORDERED: ATORVASTATIN 10 MG TAB PO SCH (09:00)
[2018-09-06] MEDS ORDERED: MULTIVITAMINS, THERA 1 EACH TAB PO SCH (09:00)
[2018-09-06] MEDS ORDERED: CLOPIDOGREL 75 MG TAB PO SCH (09:00)
[2018-09-06] MEDS ORDERED: LISINOPRIL 10 MG TAB PO SCH (09:00)
--- NOTE | 2018-09-06 12:09 | DS ---
DISCHARGE SUMMARY ADMISSION DATE: September 05, 2018. DISCHARGE DATE: September 06, 2018 BRIEF HISTORY: This is a 77-year-old female patient who was admitted to the hospital yesterday and underwent successful crossing chronic total occlusion of the left SFA along with successful balloon angioplasty and stenting of the left SFA with good angiographic results and without any complication. The patient is going to be discharged home on dual anti-platelet therapy along with statin and I will follow up with the patient in a week in the office. MMODL / IJN: [id number] /
== END 2018-09-06 09:02 | disposition home or self-care (01) ==
LOC: CATHCVL 06:56 → 3SCARD 11:11 → CATHCVL 09-06 09:02
PROVIDERS: ATTEND Internal Medicine Interventional Cardiology
DX: I70.212 Atherosclerosis of native arteries of extremities with intermittent claudication, left leg (principal); I70.92 Chronic total occlusion of artery of the extremities; I10 Essential (primary) hypertension; E11.51 Type 2 diabetes mellitus with diabetic peripheral angiopathy without gangrene; E78.5 Hyperlipidemia, unspecified; F17.200 Nicotine dependence, unspecified, uncomplicated; Z88.5 Allergy status to narcotic agent; Z79.84 Long term (current) use of oral hypoglycemic drugs; Z79.02 Long term (current) use of antithrombotics/antiplatelets; Z79.82 Long term (current) use of aspirin; Z79.899 Other long term (current) drug therapy
CPT/HCPCS: 37227; 85347; 37252; 82565; C1894 ×2; C1769 ×7; C1725 ×2; C1714; C1753; C2623; C1874; J0360; J2405; J2001; J3010; J1644; J1170; J2250

== ENCOUNTER → 2019-02-18 | Outpatient (CLI) | payer MEDICARE, BC ==
[~2019-02-18] MED LIST changes: -ALPRAZolam 0.25 MG TAB PO PRN; -ASPIRIN 325 MG TAB PO STA; +DENOSUMAB 60 MG/ML 1 ML SYRINGE SQ NR; -SODIUM CHLORIDE 0.9% 1,000 ML in EMPTY BAG 1 BAG IV ONE
[2019-02-18 10:48] VITALS: BP 134/77; PULSE 78; RESP 16; TEMP 97.9
== END ==
LOC: PROCWHC3 10:35
PROVIDERS: ATTEND Family Medicine
DX: M81.0 Age-related osteoporosis without current pathological fracture (principal)
CPT/HCPCS: 96372; J0897

== ENCOUNTER 2019-04-15 08:04 | Day surgery (SDC) | payer MEDICARE, BC ==
[2019-04-12 09:08] VITALS: BMI 29.2
[~2019-04-15 08:04] MED LIST changes: +ALPRAZolam 0.25 MG TAB PO PRN; +ASPIRIN 325 MG TAB PO ONE; -DENOSUMAB 60 MG/ML 1 ML SYRINGE SQ NR; +SODIUM CHLORIDE 0.9% 1,000 ML in EMPTY BAG 1 BAG IV ONE
[2019-04-15 08:33] VITALS: TEMP 97.9
[2019-04-15 08:39] LABS: Glucose,Whole Blood 146 mg/dL (75-99)
[2019-04-15] MEDS ORDERED: SODIUM CHLORIDE 0.9% 1,000 ML IV ONE (08:55)
[2019-04-15 08:58] LABS: Basophils # (A) 0.1 k/uL (0-0.2); Basophils % (A) 1 %; Eosinophils # (A) 0.3 k/uL (0-0.7); Eosinophils % (A) 3 %; HCT 42.6 % (34.0-46.0); HGB 13.9 gm/dL (11.4-16.0); Lymphocytes # (A) 2.4 k/uL (1.0-4.8); Lymphocytes % (A) 23 %; MCH 28.7 pg (25.0-35.0); MCHC 32.6 g/dL (31.0-37.0); MCV 88.1 fL (80.0-100.0); Mean Platelet Volume 9.8; Monocytes # (A) 0.6 k/uL (0-1.0); Monocytes % (A) 5 %; Neutrophils # (A) 7.1 k/uL (1.3-7.7); Neutrophils % (A) 67 %; Platelet Count 288 k/uL (150-450); RBC 4.83 m/uL (3.80-5.40); RDW 12.9 % (11.5-15.5); WBC 10.5 k/uL (3.8-10.6)
[2019-04-15 09:12] LABS: Calcium 10.1 mg/dL (8.4-10.2)
[2019-04-15] MEDS ORDERED: MIDAZOLAM 2 MG/2 ML VIAL IV ONE (12:39)
[2019-04-15] MEDS ORDERED: LIDOCAINE 1% INJ 10MG/ML (20 ML MDV) SQ ONE ×2 (12:41→12:45)
[2019-04-15] MEDS: MIDAZOLAM 2 MG/2 ML VIAL IV ONE ×2 (12:41→13:01)
[2019-04-15] MEDS ORDERED: fentaNYL (PF) 50 MCG/ML 2 ML AMP IV ONE (12:48)
[2019-04-15] MEDS ORDERED: SODIUM CHLORIDE 0.9% 1,000 ML IV SCH (13:45)
[2019-04-15] MEDS ORDERED: ACETAMINOPHEN TAB 325 MG TAB PO PRN (14:49)
[2019-04-15] MEDS ORDERED: ACETAMINOPHEN TAB 325 MG TAB ONE (14:51)
[2019-04-15 15:28] VITALS: RESP 16
[2019-04-15 17:22] VITALS: BP 139/67; PULSE 70
--- NOTE | 2019-04-16 01:59 | PCN ---
PROCEDURE NOTE DATE OF SERVICE: 04/15/2019 PERFORMING PHYSICIAN: Vinod Deras M.D. PROCEDURES PERFORMED: 1. Intravascular ultrasound of the inferior vena cava. 2. Intravascular ultrasound of both bilateral common iliac veins and external iliac veins. 3. Intravascular ultrasound of bilateral common femoral veins. INDICATION: This is a pleasant 78-year-old female patient with history of peripheral arterial disease as well as hypertension and dyslipidemia who continues to have bilateral lower extremity swelling and edema in spite of maximized medical treatment. Because of that, she was brought today to undergo intravascular ultrasound, IVUS, of bilateral iliacs and femoral veins. APPROACH: Right common femoral vein and left common femoral vein. COMPLICATIONS: None. LEVEL OF SEDATION: Moderate, with sedation length of 20 minutes. PROCEDURE DESCRIPTION: After obtaining informed consent, the patient was brought to the cardiac equipment operator/laborer. Both common femoral veins were cannulated using micropuncture technique under ultrasound guidance, then I placed an 8-Kinyarwanda sheath in both. Subsequently, I did advance an 0.035 wire at the right then left common femoral vein all the way to the inferior vena cava. After that I advanced intravascular ultrasound IVUS catheter over the 0.035 wire on both sides. We did manual pullback. The procedure was completed without any complication. MEASUREMENTS: 1. Right common iliac vein area was 85 mm2 with area stenosis of 40%. 2. Left common iliac vein area was 99.7 mm2 with area stenosis of 33%. 3. Right external iliac vein area was 65 mm2 with area stenosis of 45%. 4. Left external iliac vein area was 67 mm2 with area stenosis of 48%. CONCLUSION: Severe disease involving the external iliac veins bilaterally. POST-PROCEDURE MANAGEMENT: The patient will be scheduled to have stenting of both external iliac veins with adjunctive use of IVUS for optimization. MMODL / IJN: [id number] /
== END 2019-04-15 16:44 | disposition home or self-care (01) ==
LOC: CATHCVL 08:04
PROVIDERS: ATTEND Internal Medicine Interventional Cardiology
DX: I73.9 Peripheral vascular disease, unspecified (principal); I10 Essential (primary) hypertension; E78.5 Hyperlipidemia, unspecified; I87.1 Compression of vein
CPT/HCPCS: 37252; 37253 ×3; 92978; 92979; 76937; 80048; 85025; C1894; C1769 ×3; C1753; J2250; J2001; J3010

== ENCOUNTER 2019-05-15 06:20 | Day surgery (SDC) | payer BC, MEDICARE ==
[2019-05-14 12:45] VITALS: BMI 29.2
[~2019-05-15 06:20] MED LIST changes: -ALPRAZolam 0.25 MG TAB PO PRN; -ASPIRIN 325 MG TAB PO ONE
[2019-05-15] MEDS ORDERED: ASPIRIN 325 MG TAB PO ONE (07:00)
[2019-05-15 07:06] LABS: Glucose,Whole Blood 111 mg/dL (75-99)
[2019-05-15 07:08] VITALS: TEMP 97.7
[2019-05-15] MEDS: fentaNYL (PF) 50 MCG/ML 2 ML AMP IV ONE ×2 (07:50→08:37)
[2019-05-15] MEDS: MIDAZOLAM 2 MG/2 ML VIAL IV ONE ×2 (07:50→08:33)
[2019-05-15] MEDS ORDERED: LIDOCAINE 1% INJ 10MG/ML (20 ML MDV) SQ ONE ×3 (07:56→08:33)
[2019-05-15] MEDS ORDERED: MIDAZOLAM 2 MG/2 ML VIAL IV ONE (08:53)
[2019-05-15] MEDS ORDERED: HYDROmorphone 1 MG/ML 1 ML SYRINGE IVP ONE (09:20)
[2019-05-15] MEDS ORDERED: SODIUM CHLORIDE 0.9% 1,000 ML IV SCH (09:30)
[2019-05-15] MEDS ORDERED: ONDANSETRON 4 MG/2 ML VIAL ONE (09:41)
--- NOTE | 2019-05-15 10:16 | AN ---
ANGIOGRAPHY REPORT DATE OF SERVICE: 05/15/2019 PERFORMING PHYSICIAN: Vinod Deras MD. PROCEDURE PERFORMED: 1. Bilateral common femoral veins, external iliac veins, and common iliac veins angiogram. 2. Bilateral common femoral veins, external iliac veins, and common iliac veins intravascular ultrasound IVUS. INDICATION: This is a 78-year-old female patient with peripheral arterial disease, hypertension, diabetes, and dyslipidemia, who continues to have bilateral lower extremities edema in spite of maximized medical treatment and using diuretics. Because of that, she was brought today to undergo an angiogram of her femoral and iliac vein and also intravascular ultrasound of her iliacs and femoral veins. APPROACH: Right and left common femoral veins. COMPLICATION: None. LEVEL OF SEDATION: Moderate with sedation length of 82 minutes. PROCEDURE DESCRIPTION: After obtaining an informed consent, the patient was brought to the cardiac cath lab tech. The patient initially placed in a prone position. We attempted accessing the left popliteal vein, but I was unable because the vein was very small. Because of that, the patient was turned into laying flat on her back position where I did access both common femoral veins using micropuncture technique under ultrasound guidance, the micropuncture wire passed easily. Then I did place two 8-Bahraini sheaths in both common femoral veins. Anticoagulation was initiated using heparin and the patient was given 8000 units of heparin IV. Subsequently, I did bilateral common femoral veins, external iliac veins, and common iliac veins angiogram which revealed severe narrowing involving the external iliac vein bilaterally. I did confirm that with IVUS, where I did intravascular ultrasound of both femoral and iliacs vein. That revealed severe narrowing involving the common iliacs vein as well as external iliacs veins as well as common femoral veins bilaterally. But beside that, we found that the patient does have a clot involving the left common femoral vein. Because of that, we decided to stop at this point, where we start the patient on oral anticoagulation and bring the patient back to undergo the procedure to undergo stenting. CONCLUSION: 1. Severe narrowing involving the common femoral veins, external iliac vein, and common iliacs veins. 2. Deep venous thrombosis involving the left common femoral vein. POSTPROCEDURE MANAGEMENT: 1. Start the patient on Eliquis 10 mg p.o. b.i.d. for 10 days, then switch her into maintenance dose. 2. Bring the patient in about 4 weeks to undergo stenting of her femoral and iliacs vein. MMODL / IJN: [id number] /
[2019-05-15 10:26] VITALS: RESP 16
--- NOTE | 2019-05-15 10:30 | IR ---
Fluoroscopy HISTORY: Foot pain 6 minutes fluoroscopy time supplied to the referring clinician. 27 intraoperative C-arm images docum ent the procedure. See dictated report from cardiology.
[2019-05-15 11:32] VITALS: BP 117/58; PULSE 91
== END 2019-05-15 13:40 | disposition home or self-care (01) ==
LOC: CATHCVL 06:20
PROVIDERS: ATTEND Internal Medicine Interventional Cardiology
DX: I82.412 Acute embolism and thrombosis of left femoral vein (principal); E11.51 Type 2 diabetes mellitus with diabetic peripheral angiopathy without gangrene; I10 Essential (primary) hypertension; E78.5 Hyperlipidemia, unspecified; I65.23 Occlusion and stenosis of bilateral carotid arteries; F17.210 Nicotine dependence, cigarettes, uncomplicated; I34.0 Nonrheumatic mitral (valve) insufficiency; Z95.820 Peripheral vascular angioplasty status with implants and grafts; Z79.899 Other long term (current) drug therapy; Z79.82 Long term (current) use of aspirin; Z79.84 Long term (current) use of oral hypoglycemic drugs; Z79.02 Long term (current) use of antithrombotics/antiplatelets; Z88.5 Allergy status to narcotic agent
CPT/HCPCS: 37252; 36005; 75822; 37253; C1769 ×5; C1894 ×2; C1887; C1753; J2250; J2405; J2001; J3010; J1170

== ENCOUNTER 2019-07-08 08:26 | Day surgery (SDC) | payer MEDICARE ==
[2019-07-05 09:49] VITALS: BMI 28.3
[~2019-07-08 08:26] MED LIST changes: +ALPRAZolam 0.25 MG TAB PO PRN; +ASPIRIN 325 MG TAB PO ONE
[2019-07-08 09:01] VITALS: RESP 16; TEMP 98.3
[2019-07-08 09:05] LABS: Glucose,Whole Blood 138 mg/dL (75-99)
[2019-07-08 09:24] LABS: Basophils % (A) 0 %; Eosinophils # (A) 0.2 k/uL (0-0.7); Eosinophils % (A) 2 %; HGB 13.3 gm/dL (11.4-16.0); Lymphocytes # (A) 2.8 k/uL (1.0-4.8); Lymphocytes % (A) 27 %; MCH 28.2 pg (25.0-35.0); MCHC 33.2 g/dL (31.0-37.0); MCV 84.9 fL (80.0-100.0); Mean Platelet Volume 9.3; Monocytes # (A) 0.6 k/uL (0-1.0); Monocytes % (A) 6 %; Neutrophils # (A) 6.6 k/uL (1.3-7.7); Neutrophils % (A) 63 %; Platelet Count 273 k/uL (150-450); RDW 12.8 % (11.5-15.5); WBC 10.5 k/uL (3.8-10.6)
[2019-07-08 09:37] LABS: Calcium 9.6 mg/dL (8.4-10.2); Potassium 4.1 mmol/L (3.5-5.1)
[2019-07-08] MEDS ORDERED: MIDAZOLAM 2 MG/2 ML VIAL IVP ONE (09:37)
[2019-07-08] MEDS ORDERED: LIDOCAINE 1% INJ 10MG/ML (20 ML MDV) SQ ONE (09:41)
[2019-07-08] MEDS ORDERED: IOPAMIDOL-250 100ML BTL INTRAARTER ONE (09:51)
[2019-07-08] MEDS ORDERED: SODIUM CHLORIDE 0.9% 1,000 ML IV SCH (10:00)
--- NOTE | 2019-07-08 10:06 | P.PCN ---
Date of Procedure: 07/08/19 Operative Findings: AN ABDOMINAL AORTOGRAM AND BILATERAL LOWER EXTREMITIES RUNOFF PERFORMING PHYSICIAN: Vinod Deras MD PROCEDURE PERFORMED: 1. An abdominal aortogram 2. Bilateral lower extremities runoff INDICATION: This is a pleasant 78-year-old female patient with a past medical history significant for diabetes, hypertension, dyslipidemia, and peripheral arterial disease who underwent in the past successful crossing chronic total occlusion of the left SFA with a stenting of the left SFA was experiencing right lower extremities intermittent claudication. She underwent an arterial duplex study which revealed intermediate disease on the right side. Because she was experiencing pain again I did advise proceeding with aortogram with runoff. COMPLICATION: None LEVEL OF SEDATION: Moderate was sedation length of 14 minutes APPROACH: Right common femoral artery PROCEDURE DESCRIPTION: After obtaining informed consent and explaining the procedure benefits, risks, and complications, the patient was brought to the cardiac grass farm laborer. The right groin was prepped and draped in sterile fashion. The right common femoral artery was cannulated using micropuncture technique, under ultrasound guidance. A micropuncture wire was advanced, and the micropuncture sheath was advanced over the wire, then the micropuncture sheath was exchanged over an 0.35 wire into a 5-Faroese sheath dilator assembly then the wire and dilator were removed and sheath was flushed. We did an abdominal aortogram and bilateral lower extremities runoff using 5- Faroese pigtail catheter using a power injection. The catheter was initially placed at the level of the renal arteries, and it was pulled into above the bifu rcation of the aorta into right and left common iliac arteries. The procedure was completed and there was no complications. SELECTIVE PERIPHERAL ANGIOGRAM: The abdominal aorta: Appears to be angiographically normal. The common iliac arteries: Are angiographically normal. The external iliac arteries: Are angiographically normal. The internal iliac arteries: Are patent. The common femoral arteries: Are angiographically normal. Superficial femoral arteries: The right SFA appears to be diffusely diseased up to about 50% in the proximal portion The left SFA is a stented with severe in-stent restenosis in the distal portion office. Popliteal arteries: Appears to have mild disease bilaterally Below the knees: There are 3 vessels run off below the knee bilaterally CONCLUSION: 1. Mild aortoiliac disease 2. Intermediate disease involving the right SFA and severe disease involving the left SFA appears to be in-stent restenosis 3. Three vessels run off below the knee bilaterally POSTPROCEDURE MANAGEMENT: 1. Continue the current medical regimen 2. Assess for symptoms on the left side, if she is symptomatic proceed with RPG PROGRAMMER of the left SFA and if she is asymptomatic consider medical treatment 3. Follow-up with the patient
--- NOTE | 2019-07-08 10:10 | IR ---
Fluoroscopy HISTORY: Pain in leg, peripheral vascular occlusive disease 0.8 minutes fluoroscopy time supplied to the referring clinician. 75 intraoperative C-arm images doc ument the procedure. See dictated report from cardiology.
[2019-07-08] MEDS ORDERED: ACETAMINOPHEN TAB 325 MG TAB PO STA (11:45)
[2019-07-08 14:55] VITALS: BP 132/74; PULSE 74
== END 2019-07-08 14:55 | disposition home or self-care (01) ==
LOC: CATHCVL 08:26
PROVIDERS: ATTEND Internal Medicine Interventional Cardiology
DX: T82.856A Stenosis of peripheral vascular stent, initial encounter (principal); I73.9 Peripheral vascular disease, unspecified; I77.89 Other specified disorders of arteries and arterioles; I10 Essential (primary) hypertension; E78.5 Hyperlipidemia, unspecified; E11.9 Type 2 diabetes mellitus without complications; R39.15 Urgency of urination; R35.0 Frequency of micturition; I82.412 Acute embolism and thrombosis of left femoral vein; I34.0 Nonrheumatic mitral (valve) insufficiency; F17.210 Nicotine dependence, cigarettes, uncomplicated; Z98.62 Peripheral vascular angioplasty status; Z79.01 Long term (current) use of anticoagulants; Z79.899 Other long term (current) drug therapy; Z79.82 Long term (current) use of aspirin; Z79.84 Long term (current) use of oral hypoglycemic drugs; Z88.5 Allergy status to narcotic agent
CPT/HCPCS: 36200; 75625; 75716; 76937; 80048; 85025; C1769 ×4; C1894; J2250; J2001; Q9966

== ENCOUNTER → 2019-09-19 | Outpatient (CLI) | payer MEDICARE ==
[~2019-09-19] MED LIST changes: -ALPRAZolam 0.25 MG TAB PO PRN; -ASPIRIN 325 MG TAB PO ONE; +DENOSUMAB 60 MG/ML 1 ML SYRINGE SQ NR; -SODIUM CHLORIDE 0.9% 1,000 ML in EMPTY BAG 1 BAG IV ONE
[2019-09-19 09:17] VITALS: BP 136/74; PULSE 76; RESP 16; TEMP 97.7
== END | disposition home or self-care (01) ==
LOC: PROCWHC3 09:03
PROVIDERS: ATTEND Family Medicine
DX: M81.0 Age-related osteoporosis without current pathological fracture (principal)
CPT/HCPCS: 96372; J0897

== ENCOUNTER → 2020-04-03 | Outpatient (CLI) | payer MEDICARE ==
[2020-04-03 12:43] VITALS: BP 136/71; PULSE 60; RESP 18; TEMP 97.8
== END | disposition home or self-care (01) ==
LOC: PROCWHC3 12:33
PROVIDERS: ATTEND Family Medicine
DX: M81.0 Age-related osteoporosis without current pathological fracture (principal)
CPT/HCPCS: 96372; J0897

== ENCOUNTER → 2020-11-13 | Outpatient (CLI) | payer MEDICARE ==
[2020-11-13 10:22] VITALS: BP 126/56; PULSE 77; RESP 16; TEMP 97.6
== END | disposition home or self-care (01) ==
LOC: PROCWHC3 10:09
PROVIDERS: ATTEND Family Medicine
DX: M81.0 Age-related osteoporosis without current pathological fracture (principal)
CPT/HCPCS: 96372; J0897

== ENCOUNTER → 2021-02-08 | Outpatient (CLI) | payer MEDICARE ==
[2021-02-08 19:31] LABS: INR 0.94 (0.90-1.11); Prothrombin Time 10.3 sec (9.9-11.9)
[2021-02-08 21:06] LABS: African American GFR (CKD) 61.6 (60.0-200.0); Albumin 4.5 g/dL (3.8-4.9); Albumin/Globulin Ratio 2.21 (1.60-3.17); Anion Gap 13.9 mmol/L (4.00-12.00); BUN/Creat Ratio 22.6 Ratio (12.00-20.00); Blood Urea Nitrogen 22.6 mg/dL (9.0-27.0); Calcium 9.5 mg/dL (8.7-10.3); Carbon Dioxide 22.4 mmol/L (21.6-31.8); Chol/HDL Ratio 2.39 Ratio; HDL Cholesterol 63.7 mg/dL (40.00-60.00); LDL Cholesterol,Calculated 67.5 mg/dL (0.0-131.0); Non-African American GFR(CKD) 53.2 (60.0-200.0); Potassium 4.8 mmol/L (3.5-5.5); Total Bilirubin 0.4 mg/dL (0.30-1.20); Total Protein 6.5 g/dL (6.2-8.2); VLDL Calculation 20.8 mg/dL (5.00-40.00)
== END | disposition home or self-care (01) ==
LOC: LABWHC1 11:30
PROVIDERS: ATTEND Nurse Practitioner Adult Health
DX: I10 Essential (primary) hypertension (principal); E78.5 Hyperlipidemia, unspecified
CPT/HCPCS: 36415; 80053; 80061; 83735; 84436; 84443; 84480; 85610

== ENCOUNTER → 2021-07-26 | Outpatient (CLI) | payer MEDICARE ==
[~2021-07-26] MED LIST changes: -DENOSUMAB 60 MG/ML 1 ML SYRINGE SQ NR; +DENOSUMAB 60 MG/ML 1 ML SYRINGE SQ ONE
[2021-07-26 10:40] VITALS: BP 145/67; PULSE 75; RESP 16; TEMP 97.8
== END ==
LOC: PROCWHC3 10:03
PROVIDERS: ATTEND Family Medicine
DX: M81.0 Age-related osteoporosis without current pathological fracture (principal); Z88.5 Allergy status to narcotic agent; Z87.891 Personal history of nicotine dependence
CPT/HCPCS: 96372; J0897

== ENCOUNTER → 2022-01-25 | Outpatient (CLI) | payer MEDICARE ==
--- NOTE | 2022-01-25 11:37 | US ---
EXAMINATION TYPE: US kidneys/renal and bladder DATE OF EXAM: 01/25/2022 COMPARISON: NONE CLINICAL HISTORY: M54.6 pain in thoracic spine. Pt states back pain EXAM MEASUREMENTS: Right Kidney: 10.1 x 4.3 x 4.0 cm Left Kidney: 9.7 x 4.7 x 4.5 cm Right Kidney: Cyst upper pole= 3.0 x 2.3 x 2.1 cm appears simple/ No evidence of hydro Left Kidney: Cyst lower/lateral= 3.4 x 3.3 x 3.6 cm appears simple/ No evidence of hydro Bladder: wnl Bilateral Jets seen: No There is no evidence for hydronephrosis at this point in time. No nephrolithiasis is seen. No camelia s are identified. Cortical medullary differentiation is maintained. The urinary bladder is anechoic. Bilateral ureteral jets are seen. IMPRESSION: Bilateral simple cysts associated with the kidneys, ureteral jets were not identified within the urin rafy bladder
== END | disposition home or self-care (01) ==
LOC: RADUSWWP 09:22
PROVIDERS: ATTEND Family Medicine
DX: N28.1 Cyst of kidney, acquired (principal)
CPT/HCPCS: 76770

== ENCOUNTER → 2023-05-16 | Outpatient (CLI) | payer MEDICARE ==
[2023-05-16 17:48] LABS: Blood Urea Nitrogen 32.3 mg/dL (9.0-27.0)
[2023-05-16 17:49] LABS: Carbon Dioxide 20.8 mmol/L (21.6-31.8); Chloride 107 mmol/L (96-109); Potassium 4.8 mmol/L (3.5-5.5); Sodium 141 mmol/L (135-145)
[2023-05-16 19:38] LABS: HCT 41.1 % (37.2-46.3); HGB 12.5 g/dL (12.0-15.0); MCHC 30.4 g/dL (32.0-37.0); MCV 91.9 FL (80.0-97.0); Mean Platelet Volume 12.6 FL (9.5-12.2); NRBC Per 100 WBC 0 X 10*3/uL (0.00-0.01); Platelet Count 225 X 10*3/uL (140-440); RBC 4.47 X 10*6/uL (4.10-5.20); RDW 14.3 % (11.5-14.5); WBC 11.97 X 10*3/uL (4.50-10.00)
== END | disposition home or self-care (01) ==
LOC: LABPAT 09:44
PROVIDERS: ATTEND Internal Medicine Interventional Cardiology
DX: Z01.812 Encounter for preprocedural laboratory examination (principal); I25.10 Atherosclerotic heart disease of native coronary artery without angina pectoris
CPT/HCPCS: 36415; 80051; 82565; 84520; 85027

== ENCOUNTER 2023-05-24 09:43 | Day surgery (SDC) | payer MEDICARE ==
[2023-05-18 15:16] VITALS: BMI 28.8
[~2023-05-24 09:43] MED LIST changes: +ALPRAZolam 0.25 MG TAB PO PRN; +ASPIRIN 325 MG TAB PO PRN; -DENOSUMAB 60 MG/ML 1 ML SYRINGE SQ ONE; +HEPARIN SODIUM,PORCINE (1 ML) 2,500 UNIT in SODIUM CHLORIDE 0.9% 250 ML IRRIGATION PRN; +HEPARIN SODIUM,PORCINE 10,000 UNIT in SODIUM CHLORIDE 0.9% 1,000 ML IRRIGATION PRN; +ZOLPIDEM 5 MG TAB PO PRN
[2023-05-24] MEDS: SODIUM CHLORIDE 0.9% 1,000 ML IV ONE (09:50)
[2023-05-24 10:04] LABS: Glucose,Whole Blood 112 mg/dL (70-110)
[2023-05-24] MEDS ORDERED: LIDOCAINE 1% INJ 10MG/ML (20 ML MDV) ONE ×2 (14:33→14:41)
[2023-05-24] MEDS ORDERED: HEPARIN SODIUM 1,000 UN/ML (10ML VL) ONE (14:33)
[2023-05-24] MEDS ORDERED: fentaNYL (PF) 50 MCG/ML 2 ML AMP ONE (14:33)
[2023-05-24] MEDS: MIDAZOLAM 2 MG/2 ML VIAL IVP ONE ×2 (14:40→15:07)
[2023-05-24] MEDS: fentaNYL (PF) 50 MCG/ML 2 ML AMP IVP ONE ×2 (14:41→14:58)
[2023-05-24] MEDS: LIDOCAINE 1% INJ 10MG/ML (20 ML MDV) SQ ONE (14:44)
[2023-05-24] MEDS: HEPARIN SODIUM 1,000 UN/ML (10ML VL) IVP ONE (14:54)
[2023-05-24] MEDS: niCARdipine Syringe (1,000 mcg/10 mL) INTRAARTER ONE (15:22)
[2023-05-24] MEDS: NITROGLYCERIN 1000MCG/10ML SYRINGE INTRAARTER ONE (15:22)
[2023-05-24] MEDS ORDERED: CLOPIDOGREL 75 MG TAB ONE (15:27)
[2023-05-24] MEDS ORDERED: FUROSEMIDE 20 MG TAB PO PRN (15:30)
[2023-05-24] MEDS ORDERED: NALOXONE 0.4 MG/ML 1 ML VIAL IVP PRN (15:33)
[2023-05-24] MEDS: CLOPIDOGREL 75 MG TAB PO ONE (15:39)
[2023-05-24] MEDS: IOPAMIDOL-370 100ML BTL INJ ONE (15:39)
[2023-05-24] MEDS: SODIUM CHLORIDE 0.9% 1,000 ML in EMPTY BAG 1 BAG IV ONE (15:49)
[2023-05-24] MEDS: ONDANSETRON 4 MG/2 ML VIAL ONE (15:49)
--- NOTE | 2023-05-24 16:18 | IR ---
PICC Insertion: EXAMINATION TYPE: IR angio aortic arch Intraoperative/procedural fluoroscopic services were provided. CLINICAL INDICATION:Female, 82 years old with history of Leg pain/lt toe ulcers, 12.4m/9.46DAP, rt gr sheath sutured; , [facility] Total fluoroscopy time is 12.2 min. DAP: 5.59 Gycm2 Please see the operative/procedural note for further details.
[2023-05-24 17:28] LABS: Glucose,Whole Blood 105 mg/dL (70-110)
[2023-05-24 20:13] LABS: Glucose,Whole Blood 139 mg/dL (70-110)
[2023-05-24 20:19] LABS: Basophils % (A) 0 %; Eosinophils # (A) 0.2 k/uL (0-0.7); Eosinophils % (A) 3 %; HCT 37.3 % (34.0-46.0); HGB 11.6 gm/dL (11.4-16.0); Hypochromasia Moderate; Lymphocytes # (A) 2.7 k/uL (1.0-4.8); Lymphocytes % (A) 27 %; MCH 28.6 pg (25.0-35.0); MCV 92.3 fL (80.0-100.0); Mean Platelet Volume 9.1; Monocytes # (A) 0.5 k/uL (0-1.0); Monocytes % (A) 5 %; Neutrophils # (A) 6.2 k/uL (1.3-7.7); Neutrophils % (A) 64 %; Platelet Count 176 k/uL (150-450); RBC 4.05 m/uL (3.80-5.40); RDW 13.5 % (11.5-15.5); WBC 9.7 k/uL (3.8-10.6)
[2023-05-24] MEDS: FAMOTIDINE 20 MG TAB PO SCH (20:26)
[2023-05-24] MEDS: ACETAMINOPHEN TAB 325 MG TAB PO PRN (20:26)
[2023-05-24 20:30] LABS: African American GFR (CKD) 85 (>60 ml/min/1.73 sqM); Anion Gap 4 mmol/L; Blood Urea Nitrogen 23 mg/dL (7-17); Calcium 8.9 mg/dL (8.4-10.2); Carbon Dioxide 24 mmol/L (22-30); Chloride 112 mmol/L (98-107); Glucose 141 mg/dL (74-99); Non-African American GFR(CKD) 74 (>60 ml/min/1.73 sqM); Potassium 4.4 mmol/L (3.5-5.1); Sodium 140 mmol/L (137-145)
[2023-05-24 20:37] VITALS: RESP 18
--- NOTE | 2023-05-24 20:47 | P.PCN ---
Date of Procedure: 05/24/23 Operative Findings: PERCUTANEOUS PERIPHERAL INTERVENTION Performing physician Vinod Deras M.D. Procedure performed 1. Successful balloon angioplasty of the left SFA 2. Adjunctive use of atherectomy and endovascular imaging 3. Left lower extremity angiogram 4. Ultrasound-guided access of the right common femoral artery Indication Left lower extremity intermittent claudication in this 82-year-old female patient who underwent an arterial duplex study and that showed severe left SFA disease Approach Right common femoral artery Complications None Level of sedation Moderate with a sedation time of 60 minutes Procedure description After obtaining an informed consent the patient was brought to the cardiac pathology laboratory aide. The right common femoral artery was cannulated using micropuncture technique under ultrasound guidance the micropuncture wire passed easily then a 6-Fijian 70 cm sheath was placed at the right common femoral artery. She subsequently was flushed and anticoagulation was initiated using heparin with continuous ACT monitoring. Subsequently I did select the left SFA using 035 stiff Glidewire with a backup support of 5-Fijian rim catheter. Subsequently the sheath was advanced over the wire and the catheter to the distal left SFA and proximal right popliteal. Subsequently left lower extremities angiogram was performed with injection and with that she did and that showed 3 vessel runoff below the knee on the left side was normal popliteal segment on the left side and occluded left SFA which appeared to be in-stent occlusion. Across the SFA using all 3 5 stiff Glidewire with a backup support of all 3 5 catheter and subsequently exchange my all 3 5 wire into a 1 4 wire before I did endovascular imaging which showed no thrombus or fresh clot and it showed soft plaque of in- stent restenosis. I did atherectomy overall 018 wire and then I did balloon angioplasty initially using a 5 mm regular balloon. Angiogram was performed and showed that the flow looks good. I decided to do drug-coated balloon which was 6.0 x 2 50 mm balloon which was inflated under 8 elmer for 30 minutes with final angiogram showing excellent angiographic results. Subsequently I did exchange my long sheath into short sheath using all 3 5 wire that I did selective right common femoral artery angiogram. The procedure was completed with no completely Postprocedure management 1. Dual antiplatelet therapy 2. Aggressive cholesterol control 3. Risk factors modification 4. Follow-up with patient
[2023-05-25 06:05] LABS: Glucose,Whole Blood 104 mg/dL (70-110)
[2023-05-25 08:21] VITALS: BP 105/62; PULSE 77; TEMP 97.4
[2023-05-25] MEDS: TRIAMTERENE-HCTZ 37.5-25MG 1 EACH CAP PO SCH (09:11)
[2023-05-25] MEDS: ASPIRIN 81 MG PO SCH (09:11)
[2023-05-25] MEDS: VIT A,C & E-LUTEIN-MINERALS 1 EACH TAB PO SCH (09:11)
[2023-05-25] MEDS: CHOLECALCIFEROL 25 MCG (1000 IU) TABLET PO SCH (09:11)
[2023-05-25] MEDS: CLOPIDOGREL 75 MG TAB PO SCH (09:12)
[2023-05-25] MEDS: ATORVASTATIN 10 MG TAB PO SCH (09:12)
[2023-05-25 09:25] LABS: Basophils % (A) 1 %; Eosinophils # (A) 0.2 k/uL (0-0.7); Eosinophils % (A) 3 %; HCT 37.1 % (34.0-46.0); HGB 11.5 gm/dL (11.4-16.0); Hypochromasia Slight; Lymphocytes # (A) 1.4 k/uL (1.0-4.8); Lymphocytes % (A) 15 %; MCH 28.5 pg (25.0-35.0); MCV 91.7 fL (80.0-100.0); Mean Platelet Volume 9.4; Monocytes # (A) 0.6 k/uL (0-1.0); Monocytes % (A) 6 %; Neutrophils # (A) 6.8 k/uL (1.3-7.7); Neutrophils % (A) 74 %; Platelet Count 178 k/uL (150-450); RBC 4.04 m/uL (3.80-5.40); RDW 13.7 % (11.5-15.5); WBC 9.1 k/uL (3.8-10.6)
[2023-05-25 09:42] LABS: African American GFR (CKD) 80 (>60 ml/min/1.73 sqM); Anion Gap 6 mmol/L; Blood Urea Nitrogen 19 mg/dL (7-17); Calcium 9.2 mg/dL (8.4-10.2); Carbon Dioxide 23 mmol/L (22-30); Chloride 109 mmol/L (98-107); Glucose 141 mg/dL (74-99); Non-African American GFR(CKD) 69 (>60 ml/min/1.73 sqM); Potassium 5.4 mmol/L (3.5-5.1); Sodium 138 mmol/L (137-145)
[2023-05-25] MEDS ORDERED: APIXABAN 2.5 MG TABLET PO SCH (21:00)
== END 2023-05-25 09:44 | disposition home or self-care (01) ==
LOC: CATHCVL 09:43 → 3SCARD 15:25 → CATHCVL 05-25 09:44
PROVIDERS: ATTEND Internal Medicine Interventional Cardiology
DX: I25.10 Atherosclerotic heart disease of native coronary artery without angina pectoris (principal); I73.9 Peripheral vascular disease, unspecified; I38 Endocarditis, valve unspecified; I10 Essential (primary) hypertension; E78.5 Hyperlipidemia, unspecified; E11.9 Type 2 diabetes mellitus without complications; F17.210 Nicotine dependence, cigarettes, uncomplicated; Z79.82 Long term (current) use of aspirin; Z79.899 Other long term (current) drug therapy
CPT/HCPCS: 37225; 75710; 76937; 37252; 80048 ×2; 85025 ×2; C1894 ×2; C1769 ×4; C1753; C2623; C2628; J2250; J2405; J2001; J3010; J1644; Q9967; J2305

== ENCOUNTER → 2023-06-02 | Outpatient (CLI) | payer MEDICARE | END | disposition home or self-care (01) | LOC: LABWHC1 09:32 | PROVIDERS: ATTEND Family Medicine | DX: E87.5 Hyperkalemia (principal) | CPT/HCPCS: 36415; 84132 ==

== ENCOUNTER 2023-09-20 08:52 | Day surgery (SDC) | payer MEDICARE ==
[2023-09-19 09:42] VITALS: BMI 26.6
[2023-09-20 09:19] VITALS: RESP 16; TEMP 98.7
[2023-09-20] MEDS: LACTATED RINGERS 1,000 ML IV SCH (09:29)
[2023-09-20 09:30] LABS: Glucose,Whole Blood 135 mg/dL (70-110)
[2023-09-20] MEDS: IV FLUID CONTINUATION 1,000 ML IV ONE (09:30)
[2023-09-20] MEDS ORDERED: PROPOFOL 10 MG/ML 20 ML VIAL IV ONE (10:10)
[2023-09-20] MEDS ORDERED: LIDOCAINE 1% INJ 10MG/ML (20 ML MDV) ONE (10:10)
--- NOTE | 2023-09-20 10:19 | P.PCN ---
Date of Procedure: 09/20/23 Procedure(s) Performed: BRIEF HISTORY: Patient is a 82-year-old, pleasant, white female scheduled for an upper anoscopy as a part evaluation of longstanding GERD. His symptoms have been progressively getting worse recently and was started on Pepcid 20 mg twice daily and since then she is feeling much better.. PROCEDURE PERFORMED: Esophagogastroduodenoscopy with biopsy PREOPERATIVE DIAGNOSIS: Longstanding history of GERD. IV sedation per anesthesia. PROCEDURE: After informed consent was obtained, the patient was brought into the endoscopy unit. IV sedation was administered by Anesthesia under continuous monitoring. Initially the Olympus GIF-140 video endoscope was inserted into the mouth. Esophagus intubated without any difficulty. It was gradually advanced into the stomach and duodenum and carefully examined. 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 The bulb and the second part of the duodenum appeared normal. The scope at this time was withdrawn to the stomach, and the anastomosis appeared normal. There was diffuse gastritis of the body, cardia and the fundus and biopsies were done from this area. The scope was then withdrawn into the esophagus. Small hiatal hernia noted. The GE junction was located at 36 cm from the incisors. There was a small tongue of Pepe's appearing mucosa just proximal to the GE junction that was biopsied. The rest of the esophagus appeared normal. There were no erosions or ulcerations seen and the patient tolerated the procedure well. IMPRESSION: 1. Evidence of buildup in gastrectomy. 2. Diffuse gastritis of the body the stomach s/p biopsy 3. Small hiatal hernia. 4. Short segment Pepe's esophagus RECOMMENDATIONS: The findings of this examination were discussed with the patient as well as her family.. She was advised to follow the biopsy results. Continue with Pepcid 20 mg twice daily and follow antireflux measures.
[2023-09-20 10:39] VITALS: BP 118/82; PULSE 88
== END 2023-09-20 11:23 | disposition home or self-care (01) ==
LOC: ORWHC2ENDO 08:52
PROVIDERS: ATTEND Internal Medicine Gastroenterology
DX: K29.50 Unspecified chronic gastritis without bleeding (principal); K21.00 Gastro-esophageal reflux disease with esophagitis, without bleeding; K44.9 Diaphragmatic hernia without obstruction or gangrene; K22.70 Barrett's esophagus without dysplasia; Z98.890 Other specified postprocedural states
CPT/HCPCS: 88305; 43239; J2001; J2704